=== PATIENT | female | born 2000 | race Caucasian/White ===

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

== ENCOUNTER → 2020-01-08 | Outpatient (CLI) | payer BC, OTHER ==
[2020-01-11 00:10] LABS: CHLAMYDIA TRACHOMATIS, NAA Negative (Negative); NEISSERIA GONORRHOEAE, NAA Negative (Negative)
== END | disposition home or self-care (01) ==
LOC: LAB SHORT 17:49 → LAB EV 17:49
PROVIDERS: Physician Assistant
DX: N76.0 Acute vaginitis (principal)
CPT/HCPCS: 87491; 87591

== ENCOUNTER → 2020-01-13 | Outpatient (CLI) | payer BC | END | disposition home or self-care (01) | LOC: LAB 19:32 → LAB SHORT 19:32 | DX: Z32.01 Encounter for pregnancy test, result positive (principal) | CPT/HCPCS: 84703 ==

== ENCOUNTER → 2020-02-10 | Outpatient (CLI) | payer BC, OTHER ==
[2020-02-12 09:10] LABS: CHLAMYDIA BY NAA Negative (Negative); GONOCOCCUS BY NAA Negative (Negative); TRICH VAG BY NAA Negative (Negative)
== END | disposition home or self-care (01) ==
LOC: LAB EV 09:04 → LAB SHORT 09:04
PROVIDERS: Physician Assistant Medical
DX: N76.0 Acute vaginitis (principal)
CPT/HCPCS: 87491; 87591; 87661

== ENCOUNTER → 2020-05-02 | Outpatient (CLI) | payer BC, OTHER | END | disposition home or self-care (01) | LOC: LAB 17:02 → LAB SHORT 17:02 | DX: R30.0 Dysuria (principal) | CPT/HCPCS: 87086 ==

== ENCOUNTER → 2020-06-11 | Outpatient (CLI) | payer BC, OTHER | END | disposition home or self-care (01) | LOC: LAB SHORT 13:56 → LAB 13:56 → LAB SHORT 06-12 13:56 | DX: R30.0 Dysuria (principal) | CPT/HCPCS: 87086 ==

== ENCOUNTER → 2020-06-14 | Outpatient (CLI) | payer BC, OTHER ==
[2020-06-14 15:18] LABS: G. vaginalis (DNA Probe) Positive (NEGATIVE); T. vaginalis (DNA Probe) Negative (NEGATIVE)
[2020-06-14 15:19] LABS: Candida species (DNA Probe) Negative (NEGATIVE)
== END | disposition home or self-care (01) ==
LOC: LAB SHORT 13:00 → LAB 13:00
PROVIDERS: Physician Assistant
DX: L29.2 Pruritus vulvae (principal); R30.0 Dysuria
CPT/HCPCS: 87086; 87480; 87510; 87660

== ENCOUNTER → 2020-07-04 | Outpatient (CLI) | payer BC, OTHER | LOC: LAB EV 13:16 → LAB SHORT 13:16 | DX: N39.0 Urinary tract infection, site not specified (principal) | CPT/HCPCS: 87086 ==

== ENCOUNTER → 2020-09-04 | Outpatient (CLI) | payer BC, OTHER ==
[2020-09-04 16:21] LABS: Source, Urine Clean Catch
[2020-09-04 16:30] LABS: Bacteria Few /hpf; Red Blood Cells, Urine 0-2 /hpf (0-2); Squamous Epithelial Cells Many /hpf (Few); White Blood Cells, Urine 0-2 /hpf (0-5)
[2020-09-06 20:08] LABS: CHLAMYDIA TRACHOMATIS, NAA Negative (Negative); NEISSERIA GONORRHOEAE, NAA Negative (Negative)
== END | disposition home or self-care (01) ==
LOC: LAB SHORT 16:05 → LAB EV 16:05
PROVIDERS: Chiropractor
DX: N89.8 Other specified noninflammatory disorders of vagina (principal)
CPT/HCPCS: 81015; 87086; 87491; 87591

== ENCOUNTER → 2020-10-02 | Outpatient (CLI) | payer BC, OTHER | END | disposition home or self-care (01) | LOC: LAB SHORT 08:00 → LAB 08:00 | DX: R42 Dizziness and giddiness (principal) | CPT/HCPCS: 87086 ==

== ENCOUNTER → 2020-11-02 | Outpatient (CLI) | payer BC, OTHER ==
[~2020-11-02] MED LIST changes: +PRENATAL TABLE1 EAC2 PO; +Prozac20 MG PO
== END | disposition home or self-care (01) ==
LOC: LAB SHORT 18:37
DX: N89.8 Other specified noninflammatory disorders of vagina (principal)
CPT/HCPCS: 87070; 87205

== ENCOUNTER → 2021-01-13 | Outpatient (CLI) | payer BC, OTHER | END | disposition home or self-care (01) | LOC: LAB SHORT 16:47 → LAB 16:47 | DX: O26.93 Pregnancy related conditions, unspecified, third trimester (principal); Z3A.34 34 weeks gestation of pregnancy | CPT/HCPCS: 87081; 87150 ==

== ENCOUNTER 2021-02-15 06:40 | Inpatient (IN) | payer BC, OTHER ==
[~2021-02-15] VITALS: Ht 172.7 cm; Wt 72.5 kg
[~2021-02-15 06:40] MED LIST changes: -PRENATAL TABLE1 EAC2 PO; -Prozac20 MG PO
[2021-02-15] MEDS ORDERED: Prozac20 MG PO (08:01)
[2021-02-15] MEDS ORDERED: PRENATAL TABLE1 EAC2 PO (08:02)
[2021-02-15 08:15] LABS: BASOPHILS ABSOLUTE AUTO 0.04 K/mm3 (0.00-0.23); BASOPHILS PERCENT AUTO 0 % (0-2); EOSINOPHILS ABSOLUTE AUTO 0.09 K/mm3 (0.00-0.68); EOSINOPHILS PERCENT AUTO 1 % (0-6); Hematocrit 35.9 % (33.0-51.0); Hemoglobin 12.2 g/dL (11.5-16.0); IMMATURE GRAN ABSOLUTE AUTO 0.03 K/mm3 (0.00-0.10); IMMATURE GRAN PERCENT AUTO 0 % (0-1); LYMPHOCYTES ABSOLUTE AUTO 1.65 K/mm3 (0.84-5.20); LYMPHOCYTES PERCENT AUTO 17 % (21-46); MONOCYTES ABSOLUTE AUTO 0.48 K/mm3 (0.16-1.47); MONOCYTES PERCENT AUTO 5 % (4-13); Mean Corpuscular Volume 88 fL (80-100); Mean Platelet Volume 12.1 fL (9.1-12.4); NEUTROPHILS ABSOLUTE AUTO 7.54 K/mm3 (1.96-9.15); NEUTROPHILS PERCENT AUTO 77 % (41-73); Platelet Count 149 K/mm3 (150-400); RDW Coefficient Variation 13.4 % (11.7-14.2); RDW Standard Deviation 43.1 fL (35.1-46.3); Red Blood Cell Count 4.07 M/mm3 (3.80-5.20); White Blood Cell Count 9.83 K/mm3 (4.00-11.30)
--- NOTE | 2021-02-15 22:00 | NUR ---
assumed care of pt, [id number] pt asking if she can have a sleeping pill, she isnt sleepy, explained to pt that not able to to that, that she is responsible for caring for her baby. and encoruaged resting inbetween feeds.
[2021-02-16 05:56] LABS: BASOPHILS ABSOLUTE AUTO 0.04 K/mm3 (0.00-0.23); BASOPHILS PERCENT AUTO 0 % (0-2); EOSINOPHILS ABSOLUTE AUTO 0.12 K/mm3 (0.00-0.68); EOSINOPHILS PERCENT AUTO 1 % (0-6); Hematocrit 27.8 % (33.0-51.0); Hemoglobin 9.7 g/dL (11.5-16.0); IMMATURE GRAN ABSOLUTE AUTO 0.04 K/mm3 (0.00-0.10); IMMATURE GRAN PERCENT AUTO 0 % (0-1); LYMPHOCYTES ABSOLUTE AUTO 2.07 K/mm3 (0.84-5.20); LYMPHOCYTES PERCENT AUTO 19 % (21-46); MONOCYTES ABSOLUTE AUTO 0.94 K/mm3 (0.16-1.47); MONOCYTES PERCENT AUTO 8 % (4-13); Mean Corpuscular HGB 30.9 pg (26.0-34.0); Mean Corpuscular HGB Conc 34.9 g/dL (31.5-36.5); Mean Corpuscular Volume 89 fL (80-100); NEUTROPHILS ABSOLUTE AUTO 7.98 K/mm3 (1.96-9.15); NEUTROPHILS PERCENT AUTO 71 % (41-73); Platelet Count 153 K/mm3 (150-400); RDW Coefficient Variation 13.5 % (11.7-14.2); RDW Standard Deviation 43.5 fL (35.1-46.3); Red Blood Cell Count 3.14 M/mm3 (3.80-5.20); White Blood Cell Count 11.19 K/mm3 (4.00-11.30)
== END 2021-02-16 15:25 | disposition home or self-care (01) | DRG 805 ==
LOC: OBS 06:40 → BC 06:43 → OBS 07:34 → BC 07:35
PROVIDERS: ADMIT Obstetrics & Gynecology
PROC: 3E0234Z Introduction of Serum, Toxoid and Vaccine into Muscle, Percutaneous Approach (ICD-10-PCS; 2021-02-15)
PROC: 10E0XZZ Delivery of Products of Conception, External Approach (ICD-10-PCS; principal; 2021-02-16)
PROC: 0HQ9XZZ Repair Perineum Skin, External Approach (ICD-10-PCS; 2021-02-16)
PROC: 0UQMXZZ Repair Vulva, External Approach (ICD-10-PCS; 2021-02-16)
DX: O69.1XX0 Labor and delivery complicated by cord around neck, with compression, not applicable or unspecified (principal); O45.93 Premature separation of placenta, unspecified, third trimester; Z37.0 Single live birth; O70.0 First degree perineal laceration during delivery; O99.344 Other mental disorders complicating childbirth; F32.9 Major depressive disorder, single episode, unspecified; F41.9 Anxiety disorder, unspecified; O99.334 Smoking (tobacco) complicating childbirth; F17.200 Nicotine dependence, unspecified, uncomplicated; Z3A.39 39 weeks gestation of pregnancy; Z88.1 Allergy status to other antibiotic agents; Z88.2 Allergy status to sulfonamides; Z67.11 Type A blood, Rh negative
CPT/HCPCS: 36415; 51702; 85025; 85460; 86850; 86900; 86901; 96372; A9270; J1885; J2001; J2405; J2590; J2791; J3010; J7120

== ENCOUNTER → 2021-07-16 | Outpatient (CLI) | payer BC, OTHER ==
[~2021-07-16] MED LIST changes: +PRENATAL TABLE1 EAC2 PO; +Prozac20 MG PO
[2021-07-16 17:01] LABS: Candida species (DNA Probe) Negative (NEGATIVE); G. vaginalis (DNA Probe) Positive (NEGATIVE); T. vaginalis (DNA Probe) Negative (NEGATIVE)
[2021-07-18 04:10] LABS: CHLAMYDIA TRACHOMATIS, NAA Negative (Negative)
== END | disposition home or self-care (01) ==
LOC: LAB SHORT 15:46 → LAB 15:46
PROVIDERS: Physician Assistant
DX: N76.0 Acute vaginitis (principal)
CPT/HCPCS: 87480; 87491; 87510; 87591; 87660

== ENCOUNTER → 2021-09-27 | Outpatient (CLI) | payer BC, OTHER ==
[2021-09-28 09:53] LABS: Candida species (DNA Probe) Negative (NEGATIVE); G. vaginalis (DNA Probe) Positive (NEGATIVE); T. vaginalis (DNA Probe) Negative (NEGATIVE)
[2021-09-29 10:55] LABS: CHLAMYDIA TRACHOMATIS, NAA Positive (Negative)
== END | disposition home or self-care (01) ==
LOC: LAB SHORT 14:00
PROVIDERS: Physician Assistant
DX: N76.0 Acute vaginitis (principal)
CPT/HCPCS: 87480; 87491; 87510; 87591; 87660

== ENCOUNTER → 2021-11-17 | Outpatient (CLI) | payer BC, OTHER ==
[2021-11-17 18:40] LABS: BASOPHILS ABSOLUTE AUTO 0.07 K/mm3 (0.00-0.23); BASOPHILS PERCENT AUTO 1 % (0-2); EOSINOPHILS ABSOLUTE AUTO 0.14 K/mm3 (0.00-0.68); EOSINOPHILS PERCENT AUTO 2 % (0-6); Hematocrit 43.9 % (33.0-51.0); Hemoglobin 15.4 g/dL (11.5-16.0); IMMATURE GRAN ABSOLUTE AUTO 0.01 K/mm3 (0.00-0.10); IMMATURE GRAN PERCENT AUTO 0 % (0-1); LYMPHOCYTES ABSOLUTE AUTO 2.07 K/mm3 (0.84-5.20); LYMPHOCYTES PERCENT AUTO 33 % (21-46); MONOCYTES ABSOLUTE AUTO 0.67 K/mm3 (0.16-1.47); MONOCYTES PERCENT AUTO 11 % (4-13); Mean Corpuscular HGB 31.3 pg (26.0-34.0); Mean Corpuscular HGB Conc 35.1 g/dL (31.5-36.5); Mean Corpuscular Volume 89 fL (80-100); Mean Platelet Volume 11.2 fL (9.1-12.4); NEUTROPHILS ABSOLUTE AUTO 3.31 K/mm3 (1.96-9.15); NEUTROPHILS PERCENT AUTO 53 % (41-73); Platelet Count 265 K/mm3 (150-400); RDW Standard Deviation 42.2 fL (35.1-46.3); Red Blood Cell Count 4.92 M/mm3 (3.80-5.20); White Blood Cell Count 6.27 K/mm3 (4.00-11.30)
[2021-11-17 18:52] LABS: Alanine Aminotransfer (ALT/SGP 24 U/L (12-78); Albumin, Blood 4.8 g/dL (3.4-5.0); Albumin/Globulin Ratio 1.5 (0.8-1.8); Alk Phos 55 U/L (40-126); Anion Gap 10 mmol/L (6-16); Aspartate Aminotrans (AST/SGOT 18 U/L (12-37); Bilirubin, Total 1.4 mg/dL (0.1-1.0); Blood Urea Nitrogen 12 mg/dL (8-24); Bun/Creatinine Ratio 12.8 (12.0-20.0); CO2, Blood 27 mmol/L (21-32); Calcium, Blood 9.8 mg/dL (8.5-10.1); Chloride, Blood 100 mmol/L (98-108); Creatinine, Blood 0.94 mg/dL (0.40-1.00); Globulin, Blood 3.2 g/dL (2.2-4.0); Glomerular Filtration Rate >60 (60-); Glucose, Blood 92 mg/dL (70-99); Potassium, Blood 3.8 mmol/L (3.5-5.5); Sodium, Blood 137 mmol/L (136-145)
== END | disposition home or self-care (01) ==
LOC: LAB SHORT 18:36
PROVIDERS: Family Medicine
DX: N91.2 Amenorrhea, unspecified (principal); R10.9 Unspecified abdominal pain
CPT/HCPCS: 80053; 84703; 85025

== ENCOUNTER → 2022-04-01 | Outpatient (CLI) | payer BC, OTHER | END | disposition home or self-care (01) | LOC: LAB 12:35 → LAB SHORT 12:35 | DX: R00.0 Tachycardia, unspecified (principal) | CPT/HCPCS: G0480 ==

== ENCOUNTER → 2022-05-12 | Outpatient (CLI) | payer BC, OTHER | LOC: LAB SHORT 09:10 → LAB 09:10 | DX: L02.415 Cutaneous abscess of right lower limb (principal); L03.115 Cellulitis of right lower limb | CPT/HCPCS: 87070; 87075; 87077; 87147; 87186; 87205 ==

== ENCOUNTER 2025-03-06 22:38 | Emergency (ER) | payer BC, OTHER ==
[~2025-03-06] VITALS: Ht 172.7 cm; Wt 76.2 kg
[~2025-03-06 22:38] MED LIST changes: +METR500 PO; +Monodox100 MG PO; +ONDA4ODT MM; +PROBIOTIC DUO1 EACH PO
[2025-03-06] MEDS ORDERED: DiphenhydrAMINE HCl 50 MG/ML 1ML Vial IV ONE (23:00)
[2025-03-06] MEDS ORDERED: MethylPREDNISolone Sod Succ 125 MG Vial IV ONE (23:00)
[2025-03-06] MEDS ORDERED: Famotidine 10 MG/ML 2ML Vial IV ONE (23:00)
[2025-03-06] MEDS ORDERED: EpiNEPhrine 1 MG/1 ML 1ML Vial IM ONE (23:00)
[2025-03-07 00:01] VITALS: BP 138/64
[2025-03-07] MEDS ORDERED: BENADRYL25 M1 PO (01:58)
[2025-03-07] MEDS ORDERED: EPIPEN0.3 MG/0.1 IM (01:58)
== END 2025-03-07 02:13 | disposition home or self-care (01) ==
LOC: ER 22:38
DX: T78.40XA Allergy, unspecified, initial encounter (principal); Z87.891 Personal history of nicotine dependence; Z79.899 Other long term (current) drug therapy; Z88.2 Allergy status to sulfonamides; Z88.0 Allergy status to penicillin
CPT/HCPCS: 96374; 96375; 99284-25; J0171; J1200; J2919

== ENCOUNTER 2025-03-07 10:31 | Emergency (ER) | payer BC, OTHER ==
[~2025-03-07] VITALS: Ht 172.7 cm; Wt 72.6 kg
[~2025-03-07 10:31] MED LIST changes: +BENADRYL25 M1 PO; +EPIPEN0.3 MG/0.1 IM
[2025-03-07 11:03] VITALS: BP 144/99
[2025-03-07] MEDS ORDERED: Famotidine 10 MG/ML 2ML Vial IV ONE (11:10)
[2025-03-07 11:41] LABS: BASOPHILS ABSOLUTE AUTO 0.01 K/mm3 (0.00-0.23); BASOPHILS PERCENT AUTO 0 % (0-2); EOSINOPHILS PERCENT AUTO 0 % (0-6); Hematocrit 36.7 % (33.0-51.0); Hemoglobin 12.7 g/dL (11.5-16.0); IMMATURE GRAN ABSOLUTE AUTO 0.04 K/mm3 (0.00-0.10); IMMATURE GRAN PERCENT AUTO 0 % (0-1); LYMPHOCYTES ABSOLUTE AUTO 0.72 K/mm3 (0.84-5.20); LYMPHOCYTES PERCENT AUTO 8 % (21-46); MONOCYTES PERCENT AUTO 1 % (4-13); Mean Corpuscular HGB 29.2 pg (26.0-34.0); Mean Corpuscular HGB Conc 34.6 g/dL (31.5-36.5); Mean Corpuscular Volume 84 fL (80-100); Mean Platelet Volume 11.1 fL (9.1-12.4); NEUTROPHILS ABSOLUTE AUTO 8.61 K/mm3 (1.96-9.15); NEUTROPHILS PERCENT AUTO 91 % (41-73); Platelet Count 256 K/mm3 (150-400); RDW Coefficient Variation 12.4 % (11.7-14.2); RDW Standard Deviation 38.3 fL (35.1-46.3); Red Blood Cell Count 4.35 M/mm3 (3.80-5.20); White Blood Cell Count 9.48 K/mm3 (4.00-11.30)
== END 2025-03-07 12:55 | disposition home or self-care (01) ==
LOC: ER 10:31
PROVIDERS: Student in an Organized Health Care Education/Training Program
DX: T78.1XXA Other adverse food reactions, not elsewhere classified, initial encounter (principal); Z87.891 Personal history of nicotine dependence; Z79.899 Other long term (current) drug therapy; Z88.2 Allergy status to sulfonamides; Z88.0 Allergy status to penicillin; Z91.018 Allergy to other foods
CPT/HCPCS: 85025; 96374; 99283-25

== ENCOUNTER 2025-03-10 10:55 | Emergency (ER) | payer BC, OTHER ==
[~2025-03-10] VITALS: Ht 172.7 cm; Wt 72.6 kg
[2025-03-10 11:18] VITALS: BP 150/106
[2025-03-10] MEDS ORDERED: Dexamethasone Sod Phos 10 MG/ML 1ML VIAL PO ONE (12:00)
== END 2025-03-10 12:09 | disposition home or self-care (01) ==
LOC: ER 10:55
DX: T78.40XA Allergy, unspecified, initial encounter (principal); Z91.048 Other nonmedicinal substance allergy status; Z87.891 Personal history of nicotine dependence; Z59.89 Other problems related to housing and economic circumstances; X58.XXXA Exposure to other specified factors, initial encounter
CPT/HCPCS: 99283; J1100

== ENCOUNTER 2025-03-13 22:54 | Emergency (ER) | payer BC, OTHER ==
[~2025-03-13] VITALS: Ht 172.7 cm; Wt 82.5 kg
[2025-03-13 23:00] VITALS: BP 191/104
[2025-03-14] MEDS ORDERED: HyDROXyzine HCl 25 MG Tab PO ONE (00:50)
[2025-03-14] MEDS ORDERED: Atarax10 MG PO (00:54)
== END 2025-03-14 01:34 | disposition home or self-care (01) ==
LOC: ER 22:54
DX: R20.2 Paresthesia of skin (principal); Z88.2 Allergy status to sulfonamides; Z79.2 Long term (current) use of antibiotics; Z91.018 Allergy to other foods; Z79.899 Other long term (current) drug therapy; Z87.891 Personal history of nicotine dependence
CPT/HCPCS: 93005; 93010; 99283-25; A9270

== ENCOUNTER 2025-03-17 10:26 | Emergency (ER) | payer BC, OTHER ==
[~2025-03-17] VITALS: Ht 172.7 cm; Wt 72.6 kg
[~2025-03-17 10:26] MED LIST changes: +Atarax10 MG PO
[2025-03-17 10:46] VITALS: BP 140/105
[2025-03-17] MEDS ORDERED: HYDHCL25 PO (12:27)
[2025-03-17] MEDS ORDERED: HyDROXyzine HCl 25 MG Tab PO ONE (12:35)
== END 2025-03-17 12:43 | disposition home or self-care (01) ==
LOC: ER 10:26
DX: R09.A2 Foreign body sensation, throat (principal); H65.91 Unspecified nonsuppurative otitis media, right ear; Z87.891 Personal history of nicotine dependence
CPT/HCPCS: 99283; A9270

== ENCOUNTER 2025-03-23 03:00 | Emergency (ER) | payer BC, OTHER ==
[~2025-03-23] VITALS: Ht 165.1 cm; Wt 68.0 kg
[~2025-03-23 03:00] MED LIST changes: +HYDHCL25 PO
[2025-03-23] MEDS ORDERED: DiphenhydrAMINE HCL 25 MG Cap PO ONE (03:20)
[2025-03-23] MEDS ORDERED: PredniSONE 20 MG Tab PO ONE (03:20)
[2025-03-23] MEDS ORDERED: Famotidine 20 MG Tab PO ONE (03:20)
[2025-03-23 03:45] VITALS: BP 123/81
== END 2025-03-23 05:22 | disposition home or self-care (01) ==
LOC: ER 03:00
DX: T78.40XA Allergy, unspecified, initial encounter (principal); Z88.2 Allergy status to sulfonamides; Z88.0 Allergy status to penicillin; Z91.018 Allergy to other foods; Z79.899 Other long term (current) drug therapy; Z87.891 Personal history of nicotine dependence; X58.XXXA Exposure to other specified factors, initial encounter
CPT/HCPCS: 99283; A9270; J7512

== ENCOUNTER 2025-03-25 09:11 | Emergency (ER) | payer BC, OTHER ==
[~2025-03-25] VITALS: Ht 172.7 cm; Wt 72.6 kg
[2025-03-25 09:30] VITALS: BP 131/87
[2025-03-25] MEDS ORDERED: diphenhydrAMINE HCL 25 MG/10 ML UDC PO ONE (09:35)
[2025-03-25] MEDS ORDERED: Mag Hydrox/AL Hydrox/Simeth 30 ML UDC PO ONE (09:35)
[2025-03-25] MEDS ORDERED: Lidocaine 2% Viscous Soln 15 ML UDC PO ONE (09:35)
[2025-03-25] MEDS ORDERED: diphenhydrAMINE HCl 12.5 MG/5 ML 5MLUDC (Alcohol/Dye Free) PO ONE (09:50)
== END 2025-03-25 11:05 | disposition home or self-care (01) ==
LOC: ER 09:11
DX: R09.A2 Foreign body sensation, throat (principal); Z88.2 Allergy status to sulfonamides; Z88.0 Allergy status to penicillin; Z91.018 Allergy to other foods; Z79.899 Other long term (current) drug therapy; Z87.891 Personal history of nicotine dependence
CPT/HCPCS: 99283; A9270

== ENCOUNTER 2025-03-27 07:25 | Emergency (ER) | payer BC, OTHER ==
[~2025-03-27] VITALS: Ht 172.7 cm; Wt 72.6 kg
[2025-03-27 07:34] VITALS: BP 142/105
[2025-03-27] MEDS ORDERED: LORazepam 1 MG Tab PO ONE (07:40)
== END 2025-03-27 08:51 | disposition home or self-care (01) ==
LOC: ER 07:25
DX: F41.9 Anxiety disorder, unspecified (principal); Z87.891 Personal history of nicotine dependence; Z79.899 Other long term (current) drug therapy; Z88.2 Allergy status to sulfonamides; Z88.0 Allergy status to penicillin; Z91.018 Allergy to other foods
CPT/HCPCS: 99283; A9270

== ENCOUNTER 2025-07-02 16:35 | Emergency (ER) | payer OTHER, BC ==
[~2025-07-02] VITALS: Ht 172.7 cm; Wt 88.9 kg
[2025-07-02 16:55] VITALS: BP 130/79
== END 2025-07-02 18:56 | disposition home or self-care (01) ==
LOC: ER 16:35
DX: S61.213A Laceration without foreign body of left middle finger without damage to nail, initial encounter (principal); S61.412A Laceration without foreign body of left hand, initial encounter; Z88.2 Allergy status to sulfonamides; Z91.018 Allergy to other foods; Z88.1 Allergy status to other antibiotic agents; Z79.899 Other long term (current) drug therapy
CPT/HCPCS: 12002; 99283-25

== ENCOUNTER → 2025-07-24 | Outpatient (CLI) | payer BC, OTHER | LOC: LAB 15:50 → LAB SHORT 15:50 | DX: N39.0 Urinary tract infection, site not specified (principal) | CPT/HCPCS: 87086 ==

== ENCOUNTER → 2025-09-09 | Outpatient (CLI) | payer BC, OTHER ==
[2025-09-10 18:40] LABS: Bacterial Vaginosis PCR Negative (NEGATIVE); Candida Group, PCR NOT DETECTED (NOT DETECT); Candida glabrata-krusei, PCR NOT DETECTED (NOT DETECT)
== END | disposition home or self-care (01) ==
LOC: LAB SHORT 17:15 → LAB 17:15
PROVIDERS: Physician Assistant
DX: Z12.4 Encounter for screening for malignant neoplasm of cervix (principal); N76.0 Acute vaginitis; B96.89 Other specified bacterial agents as the cause of diseases classified elsewhere
CPT/HCPCS: 81515; G0145

== ENCOUNTER → 2025-10-17 | Outpatient (CLI) | payer BC, OTHER | LOC: LAB SHORT 13:56 → LAB 13:56 | DX: R30.0 Dysuria (principal) | CPT/HCPCS: 87086 ==